=== PATIENT | female | born 1990 | race Caucasian/White ===

== ENCOUNTER 2018-11-12 08:59 | Day surgery (SDC) | payer MEDICAID ==
[~2018-11-12] VITALS: Ht 167.6 cm; Wt 99.8 kg
[~2018-11-12 08:59] MED LIST: CAMILA0.35 MG PO
[2018-11-12 09:14] LABS: BASOPHILS 0.3 % (0-2); EOSINOPHILS 1.8 % (0-7); HEMATOCRIT 41.8 % (36.0-48.0); HEMOGLOBIN 14.4 g/dL (12-16); IMMATURE GRANULOCYTES 0.1 % (0-5); LYMPHOCYTES 35.3 % (15-50); MCH 28.5 pg (26.0-34.0); MCHC 34.4 g/dL (31.0-37.0); MCV 82.8 fL (80.0-100.0); MEAN PLATELET VOLUME 9.6 fL (7.4-10.4); MONOCYTES 9.2 % (2-11); NEUTROPHILS 53.3 % (40-80); PLATELET COUNT 249 10x3/uL (130-400); RBC 5.05 10x6/uL (4.00-5.40); RDW 15.2 % (11.5-14.5); WBC 7.1 10x3/uL (4.8-10.8)
[2018-11-12 09:19] LABS: CALC OSMOLALITY 280 mosm/kg (275-300); CALCIUM 8.9 mg/dL (8.5-10.1); CHLORIDE - SERUM 105 mmol/L (98-107); CREATININE - SERUM 0.7 mg/dL (0.6-1.3); GLUCOSE 97 mg/dL (74-106); POTASSIUM - SERUM 4.5 mmol/L (3.5-5.1); SODIUM 141 mmol/L (136-145); UREA NITROGEN 13 mg/dL (7-18); eGFR NON AFRICAN AMERICAN > 90 mL/min (90-120)
[2018-11-12 09:36] VITALS: BP 109/65; Ht 167.6 cm; Wt 99.8 kg
[2018-11-12 09:46] LABS: HCG URINE NEGATIVE (NEGATIVE)
[2018-11-12] MEDS ORDERED: HYDROCODON-ACE1 EA10 PO (14:03)
--- NOTE | 2018-11-12 16:21 | NUR ---
1600 IV REMOVED AND PRESSURE HELD AND DRESSING APPLIED PAIN EASING
--- NOTE | 2018-11-14 07:19 | OP ---
PATIENT NAME: GERTRUDE MENJIVAR MEDICAL RECORD: [id number] :90 LOCATION:D.OPS ADMISSION DATE: SURGEON: GEOVANY LAWSON MD DATE OF OPERATION: 11/12/2018 PREOPERATIVE DIAGNOSES: 1. Gallstones. 2. Tobacco dependence syndrome. 3. Morbid obesity with a BMI of 35. POSTOPERATIVE DIAGNOSES: 1. Gallstones. 2. Tobacco dependence syndrome. 3. Morbid obesity with a BMI of 35. PROCEDURE: Laparoscopic cholecystectomy. SURGEON: Geovany Lawson MD REPORT OF PROCEDURE: The patient's abdomen was prepped and draped in sterile fashion. A cutdown was made on the superior aspect of the umbilicus. The 0 Vicryls were placed in the fascia bilaterally and the fascia was incised with 15-blade. I then bluntly entered the peritoneal cavity and placed a 12-mm Denise port. Under direct visualization, a 5-mm trocar was placed in the epigastrium and 2 more 5-mm trocars were placed in the right subcostal region. The gallbladder was grasped and elevated. The cystic artery and cystic duct were dissected free, and these were clipped proximally and distally and ligated in a standard fashion. The gallbladder was taken off the liver bed using electrocautery and placed into the right upper quadrant. Any bleeding from the liver bed was then treated with electrocautery. We irrigated out the right upper quadrant and assured there was no sign of any bleeding or bile leakage. At this point, the ports and insufflation were then removed, and the gallbladder was taken out through the umbilicus. The umbilical fascia was closed with interrupted 0 Vicryls times 3. The wounds were then irrigated out with normal saline and infused with 10 mL of 0.25% Marcaine with epinephrine. The skin incisions were all closed with subcutaneous 5-0 Monocryl and dressed appropriately. COMPLICATIONS: None. CONDITION: Stable. ANESTHESIA: General endotracheal and local. BLOOD LOSS: Minimal. TRANSINT:[id number] Voice Confirmation ID: [id number] DOCUMENT ID: [id number] OPERATIVE REPORT [id number] GERTRUDE MENJIVAR GEOVANY LAWSON MD at 0719 CC: QUINTIN KOEHLER MD [id number] DICTATION DATE: 11/12/18 1412 SENIOR CONSTRUCTION MANAGER: 11/12/18 1441 [facility] 11/12/18 [facility] [address] [id number]
== END 2018-11-12 16:40 | disposition home or self-care (01) ==
LOC: D.OPS 08:59
PROVIDERS: ATTEND Surgery
DX: K80.10 Calculus of gallbladder with chronic cholecystitis without obstruction (principal); F17.200 Nicotine dependence, unspecified, uncomplicated; E66.01 Morbid (severe) obesity due to excess calories; Z68.35 Body mass index [BMI] 35.0-35.9, adult; Z01.812 Encounter for preprocedural laboratory examination

== ENCOUNTER 2020-08-29 11:56 | Emergency (ER) | payer MEDICAID ==
[~2020-08-29] VITALS: Ht 167.6 cm; Wt 90.9 kg
[~2020-08-29 11:56] MED LIST changes: +HYDROCODON-ACE1 EA10 PO
[2020-08-29 12:00] VITALS: Ht 167.6 cm; Wt 90.9 kg
[2020-08-29] MEDS ORDERED: VIBRAMYCIN 100100 MG PO (12:27)
[2020-08-29 12:28] LABS: BILIRUBIN NEGATIVE (NEGATIVE); KETONE NEGATIVE mg/dL (< 1+); NITRITE NEGATIVE (NEGATIVE); PH 6.5 (5.0-8.0); SQUAMOUS EPITHELIAL <1 HPF (0-4); UROBILINOGEN NORMAL mg/dL (< 2); WHITE CELLS - URINE 1 HPF (0-4)
[2020-08-29 12:56] VITALS: BP 110/70
== END 2020-08-29 12:58 | disposition home or self-care (01) ==
LOC: D.ER 11:56
PROVIDERS: Family Medicine
DX: R10.2 Pelvic and perineal pain (principal); N93.9 Abnormal uterine and vaginal bleeding, unspecified